=== PATIENT | female | born 1975 | race Caucasian/White ===

== ENCOUNTER 2020-10-27 05:29 | Emergency (ER) | payer SELFPAY ==
--- NOTE | ~2020-10-27 | XR_ITS ---
EXAMINATION: XR RIBS, LEFT CLINICAL INFORMATION: Status post fall COMPARISON: None TECHNIQUE: 3 views of the left ribs were obtained. PA view of the chest. FINDINGS: Lungs are clear. No consolidation, pneumothorax, or pleural effusion. The cardiomediastinal silhouette and pulmonary vasculature are normal. Osseous structures are unremarkable. Ribs are intact. No fractures are identified. Radiopaque coils in the upper abdomen noted. XR/XR ribs LT min 3V w CXR1V IMPRESSION: No acute pulmonary finding. No rib fracture identified.
[2020-10-27 05:48] VITALS: BP 90/66; PULSE 75; RESP 20; O2SAT 99; BMI 20.3
--- NOTE | 2020-10-27 05:48 | PC.NURSE ---
at bedside for primary eval.
[2020-10-27] MEDS: traMADoL HCL 50 MG TABLET PO (06:04)
--- NOTE | 2020-10-27 06:05 | PC.NURSE ---
Medicated per MAR, off to XRay.
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
[2020-10-27] MEDS: hydrOXYzine HCL 50 MG TABLET PO (06:38)
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
== END 2020-10-27 07:30 | disposition home or self-care (01) ==
LOC: HO.ED 06:43
PROVIDERS: Emergency Provider Internal Medicine
DX: F41.9 Anxiety disorder, unspecified (principal); Z91.81 History of falling
CPT/HCPCS: 71101; 99283